=== PATIENT | female | born 1980 | race Caucasian/White ===

== ENCOUNTER 2020-01-09 08:00 | Outpatient (CLI) | payer OTHER ==
[2020-01-10 21:58] LABS: TRICHOMONAS VAGINALIS DNA NEGATIVE (NEGATIVE)
== END 2020-01-09 23:59 | disposition home or self-care (01) ==
LOC: LAB.R 08:00
PROVIDERS: ATTEND Obstetrics & Gynecology
DX: Z36.85 Encounter for antenatal screening for Streptococcus B (principal)
CPT/HCPCS: 87491; 87591; 87661; 87797

== ENCOUNTER 2020-01-18 12:52 | Outpatient (CLI) | payer OTHER ==
--- NOTE | 2020-01-18 15:37 | Ultrasound Report ---
Reason: SUPERVISION HIGH RISK 3RD TRIMESTER Procedure Date: 01/18/2020 Accession Number: [id number] / [id number] Procedure: US - OB F/U or Repeat CPT Code: Final Report FULL RESULT: EXAM: FOLLOW-UP OBSTETRICAL ULTRASOUND. EXAM DATE: 01/18/2020 01:10 PM. CLINICAL HISTORY: Supervision high-risk 3rd trimester. COMPARISON: None. 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 Multiple clearance representative static images were saved for review. DATING: Established EGA 37 weeks 6 days with SAVAGE 02/02/2020 based on working due date. EGA 38 weeks 0 days with SAVAGE 02/01/2020 based on the current ultrasound. GENERAL EVALUATION Torres . Cardiac activity: 128 bpm. movement: Visualized. Presentation: Cephalic. Placenta: Anterior position. Amniotic fluid: Normal. ANA 20.7 cm. MVP 6.3 cm. BIOMETRY Bi-Parietal Diameter (BPD): 9.2 cm, 37 weeks 3 days. Head Circumference (HC): 32.9 cm, 37 weeks 3 days. Abdominal Circumference (AC): 35.7 cm, 39 weeks 4 days. Femur Length (FL): 7.3 cm, 37 weeks 2 days. Estimated Weight: 2546 g, 80th percentile for 37 weeks 6 days. IMPRESSION: 1. Torres live intrauterine with gestational age 37 weeks 6 days based on working due date. 2. Estimated weight is within expected limits for assigned dating. JORGE
== END 2020-01-18 12:53 | disposition home or self-care (01) ==
LOC: DI 12:52
PROVIDERS: ATTEND Obstetrics & Gynecology
DX: O09.93 Supervision of high risk pregnancy, unspecified, third trimester (principal); O32.0XX0 Maternal care for unstable lie, not applicable or unspecified; Z3A.37 37 weeks gestation of pregnancy
CPT/HCPCS: 76816

== ENCOUNTER 2022-08-17 11:39 | Emergency (ER) | payer OTHER ==
[2022-08-17 12:16] LABS: RAPID STREP SCREEN Negative (Negative)
--- NOTE | 2022-08-17 12:47 | XRAY Report ---
PROCEDURE: Chest 2 View X-Ray INDICATIONS: cough TECHNIQUE: 2 view(s) of the chest. COMPARISON: None. FINDINGS: Surgical changes and devices: None Lungs and pleura: No pleural effusions or pneumothorax. Lungs are clear. Mediastinum: Mediastinal contours are normal. Heart size is normal. Bones and chest wall: No suspicious bony abnormalities. Soft tissues appear unremarkable. IMPRESSION: Normal two-view chest x-ray Reviewed by: Moses Alegria MD on 08/17/2022 11:45 AM PIA Approved by: Moses Alegria MD on 08/17/2022 11:45 AM PIA Station ID: [id number]
[2022-08-17 13:36] LABS: B. PARAPERTUSSIS- RESP PCR PAN NOT DETECTED; B. PERTUSSIS- RESP PCR PANEL NOT DETECTED; C. PNEUMONIAE- RESP PCR PANEL NOT DETECTED; CORONAVIRUS 229E-RESP PCR NOT DETECTED; CORONAVIRUS HKU1-RESP PCR NOT DETECTED; CORONAVIRUS NL63-RESP PCR NOT DETECTED; CORONAVIRUS OC43-RESP PCR NOT DETECTED; HUMAN METAPNEUMOVIRUS NOT DETECTED; INFLUENZA A- RESP PCR PANEL NOT DETECTED; INFLUENZA B - RESP PCR PANEL NOT DETECTED; M. PNEUMONIAE- RESP PCR PANEL NOT DETECTED; PARAINFLUENZA VIRUS 1 NOT DETECTED; PARAINFLUENZA VIRUS 2 NOT DETECTED; PARAINFLUENZA VIRUS 3 NOT DETECTED; PARAINFLUENZA VIRUS 4 NOT DETECTED; RHINOVIRUS/ENTEROVIRUS NOT DETECTED; RSV- RESP PCR PANEL NOT DETECTED; SARS-CoV-2 -RESP PCR PANEL NOT DETECTED
--- NOTE | 2022-08-17 14:25 | ED Physician Documentation ---
PD HPI HEENT - Stated complaint Stated Complaint: FEVER/SORE THROAT - Chief complaint Chief Complaint: Fever - History obtained from History obtained from: Patient - Additional information Additional information: The patient comes to the emergency department with chief complaint of fever, fatigue, aches, and sore throat after traveling back from [place] a few days ago. She states her daughter was sick with something similar several days before and she thinks she has the same. She states she is taken an at home COVID test which is negative. The patient states she has had a mild cough and some nasal congestion, as well. She is otherwise healthy. No other complaints at this time. Review of Systems Ten Systems: 10 systems reviewed and negative Constitutional: reports: Fever, Fatigue Eyes: reports: Reviewed and negative Ears: reports: Reviewed and negative Nose: reports: Rhinorrhea / runny nose, Congestion Throat: reports: Sore throat Cardiac: reports: Reviewed and negative Respiratory: reports: Reviewed and negative GI: reports: Reviewed and negative : reports: Reviewed and negative Skin: reports: Reviewed and negative Musculoskeletal: reports: Reviewed and negative Neurologic: reports: Headache Psychiatric: reports: Reviewed and negative Endocrine: reports: Reviewed and negative Immunocompromised: reports: Reviewed and negative PD PAST MEDICAL HISTORY - Past Medical History Cardiovascular: None Respiratory: Asthma Neuro: None Endocrine/Autoimmune: None GI: None : None Musculoskeletal: None Derm: None - 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 - Present Medications Home Medications: Ambulatory Orders Medication Instructions Recorded Confirmed HYDROcodone/ACET 7.5/325 MADDIE 7.5 ml PO Q6HR PRN #75 ml 08/17/22 [Lortab 7.5/325 Maddie] predniSONE [Deltasone] 60 mg PO DAILY 3 Days #9 tablet 08/17/22 - Allergies Allergies/Adverse Reactions: Allergies Allergy/AdvReac Type Severity Reaction Status Date / Time No Known Drug Allergies Allergy Verified 02/02/20 17:21 - Social History Smoking Status: Never smoker PD ED PE NORMAL - Vitals Vital signs reviewed: Yes - General General: Alert and oriented X 3, No acute distress, Well developed/nourished - HEENT HEENT: Atraumatic, PERRL, EOMI, Moist mucous membranes, Other (Moderate erythema bilateral tonsils, with mucus overlying.) - Neck Neck: Supple, no meningeal sign - Cardiac Cardiac: RRR, No murmur, Strong equal pulses - Respiratory Respiratory: No respiratory distress, Clear bilaterally - Abdomen Abdomen: Soft, Non tender, Non distended - Derm Derm: Normal color, Warm and dry, No rash - Extremities Extremities: No deformity, No edema - Neuro Neuro: Alert and oriented 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 parapertussis DNA (PCR) NOT DETECTED Nasal Coronavir 229E PCR NOT DETECTED Nasal Coronavir HKU1 PCR NOT DETECTED Nasal Coronavir NL63 PCR NOT DETECTED Nasal Coronavir OC43 PCR NOT DETECTED Nasal Enterovir/Rhinovir PCR NOT DETECTED Nasal Influenza B PCR NOT DETECTED Nasal Influenza A PCR NOT DETECTED Nasal Parainfluen 1 PCR NOT DETECTED Nasal Parainfluen 2 PCR NOT DETECTED Nasal Parainfluen 3 PCR NOT DETECTED Nasal Parainfluen 4 PCR NOT DETECTED Nasal RSV (PCR) NOT DETECTED Nasal B.pertussis DNA PCR NOT DETECTED Nasal C.pneumoniae (PCR) NOT DETECTED Chauncey Human Metapneumo PCR NOT DETECTED Nasal M.pneumoniae (PCR) NOT DETECTED Nasal SARS-CoV-2 (PCR) NOT DETECTED Group A Strep Rapid Negative PD MEDICAL DECISION MAKING - ED course Complexity details: reviewed results, re-evaluated patient, considered differential, d/w patient ED course: The patient was worked up with rapid strep, chest x-ray, and respiratory PCR, which was positive for nasal adenovirus. We discussed the self-limited nature of this illness as well as the usual indications for return. We have discussed symptomatic management at home. Departure - Departure Disposition: 01 Home, Self Care Clinical Impression: Viral syndrome Condition: Stable Instructions: ED Viral Syndrome Prescriptions: HYDROcodone/ACET 7.5/325 MADDIE [Lortab 7.5/325 Maddie] 7.5 ml PO Q6HR PRN #75 ml PRN Reason: Pain predniSONE [Deltasone] 60 mg PO DAILY 3 Days #9 tablet Comments: Your strep test is negative. Your chest x-ray looks good and your viral panel is positive for Adenovirus, one of the common viruses that causes upper respiratory infections. A throat culture has been sent of the rapid strep test that was done and if this comes back positive, you will be notified. At this point in time, there is no indication for antibiotics. 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 You may take these, along with ibuprofen, if needed for discomforts. Please drink plenty of fluids and follow-up with your primary doctor if you are still having symptoms after week. Discharge Date/Time: 08/17/22 14:32
[2022-08-17 14:32] VITALS: BP 136/72
== END 2022-08-17 14:32 | disposition home or self-care (01) ==
LOC: ED 11:39
DX: B34.0 Adenovirus infection, unspecified (principal); Z20.822 Contact with and (suspected) exposure to COVID-19
CPT/HCPCS: 87070; 87430; 87633; 99282; 99284